=== PATIENT | male | born 1995 | race Caucasian/White ===

== ENCOUNTER 2018-10-27 18:35 | Emergency (ER) | payer OTHER ==
[~2018-10-27] VITALS: Ht 180.3 cm; Wt 72.6 kg
[~2018-10-27 18:35] MED LIST: BACTRIM DS TAB1 EACH PO; CALCIUM PO; HYDROCODON-ACE1 EAC7 PO; IBUPROFEN 200200 M1 PO; IBUPROFEN 800800 MG PO; INDOMETHACIN 2525 MG PO; NORCO 5-325 TA1 EACH PO; VITAMINC500 PO; ZPAK PO
[2018-10-27] MEDS ORDERED: ZPAK PO (19:23)
[2018-10-27] MEDS ORDERED: PREDNISONE 20 M20 M1 PO (19:23)
[2018-10-27] MEDS ORDERED: PROAIR HFA8.5 GM INH (19:23)
[2018-10-27 20:05] VITALS: BP 143/77
== END 2018-10-27 20:06 | disposition home or self-care (01) ==
LOC: M.ERS 18:35
DX: J20.9 Acute bronchitis, unspecified (principal); F17.210 Nicotine dependence, cigarettes, uncomplicated; Z87.01 Personal history of pneumonia (recurrent); Z88.8 Allergy status to other drugs, medicaments and biological substances

== ENCOUNTER 2019-04-19 07:42 | Emergency (ER) | payer OTHER ==
[~2019-04-19] VITALS: Ht 180.3 cm; Wt 72.6 kg
[~2019-04-19 07:42] MED LIST changes: +PREDNISONE 20 M20 M1 PO; +PROAIR HFA8.5 GM INH
[2019-04-19] MEDS ORDERED: IBUPROFEN 800800 MG PO (08:28)
[2019-04-19] MEDS ORDERED: TRAMADOL 50 MG50 MG PO (08:28)
[2019-04-19 08:33] VITALS: BP 112/74
== END 2019-04-19 08:35 | disposition home or self-care (01) ==
LOC: M.ERS 07:42
DX: S50.12XA Contusion of left forearm, initial encounter (principal); S80.01XA Contusion of right knee, initial encounter; F17.210 Nicotine dependence, cigarettes, uncomplicated; Z88.8 Allergy status to other drugs, medicaments and biological substances; V89.2XXA Person injured in unspecified motor-vehicle accident, traffic, initial encounter; Y93.89 Activity, other specified; Y92.89 Other specified places as the place of occurrence of the external cause; Y99.8 Other external cause status